=== PATIENT | male | born 1965 | race Caucasian/White ===

== ENCOUNTER 2024-11-27 06:57 | Day surgery (SDC) | payer BC ==
[2024-11-27] MEDS ORDERED: Depo-Medrol 40 MG/ML IM ONE (06:58)
[2024-11-27] MEDS ORDERED: LIDOCAINE HCL 1% AMPUL 5 ML IJ ONE (06:58)
[2024-11-27] MEDS ORDERED: Sodium Chloride 0.9(Preservative Free) 10 ML IJ ONE (06:58)
[2024-11-27] MEDS ORDERED: propofoL IV ONE (08:26)
--- NOTE | 2024-11-27 09:48 | XRAY ---
Indication: Lumbar ALEE. Intraoperative fluoroscopy provided for 9 seconds. 3 digital spot image submitted for interpretation demonstrates posterior needle tip projecting posterior to last lumbar segment. Small amount of contrast injected for needle tip placement. Correlate with intraoperative findings/report.
--- NOTE | 2024-11-27 10:29 | XRAY ---
9 seconds of fluoroscopy was used in surgery for a lumbar ALEE.
== END 2024-11-27 08:50 | disposition home or self-care (01) ==
LOC: SDC-PAIN 06:57
PROVIDERS: ATTEND Psychiatry & Neurology Pain Medicine
DX: M54.16 Radiculopathy, lumbar region (principal); R73.03 Prediabetes
CPT/HCPCS: 62323; 72100; 77003; 82947; J2704; Q9966

== ENCOUNTER 2025-03-12 10:58 | Day surgery (SDC) | payer BC ==
[2025-03-12] MEDS ORDERED: Sodium Chloride 0.9(Preservative Free) 10 ML IJ ONE (10:59)
[2025-03-12] MEDS ORDERED: dexAMETHasone sodium phosphate IJ ONE (10:59)
[2025-03-12] MEDS ORDERED: propofoL IV ONE (13:00)
[2025-03-12] MEDS ORDERED: MORPHINE SULFATE 2 MG INJ ONE (13:18)
[2025-03-12] MEDS ORDERED: DILAUDID 0.5 MG/0.5 ML SYRINGE ONE (13:37)
--- NOTE | 2025-03-12 14:05 | XRAY ---
Indication: Right L4-S1 transforaminal ALEE. Intraoperative fluoroscopy provided for 39 seconds. 6 digital spot images submitted for interpretation demonstrates posterior needle tips projecting over expected right L4 and L5 nerve roots. Small amount of contrast injected for needle tip placement. Correlate with intraoperative findings/report.
--- NOTE | 2025-03-12 14:07 | XRAY ---
39 seconds of fluoroscopy were used in surgery for a right L4-S1 transforaminal ALEE.
== END 2025-03-12 14:00 | disposition home or self-care (01) ==
LOC: SDC-PAIN 10:58 → SDC 10:58
PROVIDERS: ATTEND Psychiatry & Neurology Pain Medicine
DX: M54.16 Radiculopathy, lumbar region (principal); R73.03 Prediabetes
CPT/HCPCS: 64483; 64484; 72100; 82947; J1100; J1171; J2270; J2704; Q9966